=== PATIENT | male | born 1960 | race Caucasian/White ===

== ENCOUNTER 2018-10-15 09:30 | Emergency (ER) | payer OTHER ==
[~2018-10-15] VITALS: Ht 157.5 cm; Wt 78.9 kg
[2018-10-15 09:35] VITALS: Ht 157.5 cm; Wt 78.9 kg
[2018-10-15] MEDS ORDERED: LIDOCAINE 1% (MPF) 5 ML VIAL INJ ONE (10:00)
[2018-10-15] MEDS ORDERED: CEPH-443 PO (11:11)
[2018-10-15] MEDS ORDERED: NAPR-985 PO (11:11)
[2018-10-15] MEDS ORDERED: SULF1TAB31 PO (11:11)
[2018-10-15 11:31] VITALS: BP 133/71; PULSE 71; RESP 18
--- NOTE | 2018-10-15 13:31 | ERD ---
ER Documentation Chief Complaint Chief Complaint LEFT HIP ABCESS X 2 WEEKS HPI 58-year-old male presenting with an abscess to his left hip. Patient states is been there for about 2 weeks. He has not taking any medication or applying cream to the affected area. He states is gotten larger and is very painful. Denies fevers. No other medical problems. NKDA. Surgical history denies. Social history denies ROS All systems reviewed and are negative except as per history of present illness. Medications Home Meds Active Scripts Naproxen* (Naprosyn*) 500 Mg Tablet, 500 MG PO BID PRN for PAIN AND/OR INFLAMMATION, #30 TAB Prov:IVIS MAC PA-C 10/15/18 Cephalexin* (Keflex*) 500 Mg Capsule, 500 MG PO QID for 7 Days, CAP Prov:IVIS MAC PA-C 10/15/18 Sulfamethoxazole/Trimethoprim* (Bactrim Ds* Tablet) 1 Each Tablet, 1 TAB PO BID, #14 TAB Prov:IVIS MAC PA-C 10/15/18 Allergies Allergies: Coded Allergies: No Known Allergy (Unverified , 10/15/18) PMhx/Soc History of Surgery: Yes ("Abdominal ?") Anesthesia Reaction: No Hx Neurological Disorder: No Hx Respiratory Disorders: No Hx Cardiac Disorders: No Hx Psychiatric Problems: No Hx Miscellaneous Medical Probl: No Hx Alcohol Use: Yes Hx Substance Use: No Hx Tobacco Use: Yes Smoking Status: Current some day smoker FmHx Family History: No diabetes, No coronary disease, No other Physical Exam Vitals Vital Signs Date Temp Pulse Resp B/P (MAP) Pulse Ox O2 O2 Flow FiO2 Time Delivery Rate 10/15/18 98.1 71 18 133/71 99 Room Air 11:31 (91) 10/15/18 98.1 77 18 140/77 99 09:35 (98) Physical Exam GENERAL: The patient is well-appearing, well-nourished, in no acute distress CHEST: Clear to auscultation bilaterally. There are no rales, wheezes or rhonchi. HEART: Regular rate and rhythm. No murmurs, clicks, rubs or gallops. EXTREMITIES: Equal pulses bilaterally. There is no peripheral clubbing, cyanosis or edema. No focal swelling or erythema. Full range of motion. Grossly neurovascularly intact. NEUROLOGIC: Alert and oriented. Cranial nerves II through XII intact. Motor strength in all 4 extremities with 5 out of 5 strength. Sensation grossly intact. Normal speech and gait. SKIN: Indurated erythematous site noted to the left hip. Questionable fluctuance. No lymphatic streaking. Results 24 hrs Current Medications Medications Dose Sig/Yuli Start Time Status Last (Trade) Ordered Route PRN Stop Time Admin Dose Reason Admin Lidocaine 5 ml ONCE ONCE 10/15/18 DC (Xylocaine INJ 10:00 10/15/18 1% (Mpf)) 10:01 Procedures/MDM ER course: Site was cleaned and 3 cc of plain lidocaine injected into the affected site. Incision was made. No purulence was extracted only blood was removed from the area. site was reclean the pressure bandage was applied. MDM: 58-year-old male presenting with abscess to left hip. Purulence was removed from the abscess at today's visit so is he is recommended to return home apply warm compresses for 2 days. I recommended he return to the ER in 2 days for repeat procedure as purulence is will likely be present at that time. Patient is discharged with antibiotics. Patient is told symptoms change or worsen to return immediately to the ER. All questions answered at discharge Departure Diagnosis: Primary Impression: Abscess Condition: Stable Patient Instructions: Abscess, Incision And Drainage Referrals: [facility] YOU HAVE RECEIVED A MEDICAL SCREENING EXAM AND THE RESULTS INDICATE THAT YOU DO NOT HAVE A CONDITION THAT REQUIRES URGENT TREATMENT IN THE EMERGENCY DEPARTMENT. FURTHER EVALUATION AND TREATMENT OF YOUR CONDITION CAN WAIT UNTIL YOU ARE SEEN IN YOUR DOCTORS OFFICE WITHIN THE NEXT 1-2 DAYS. IT IS YOUR RESPONSIBILITY TO MAKE AN APPOINTMENT FOR FOLOW-UP CARE. IF YOU HAVE A PRIMARY DOCTOR --you should call your primary doctor and schedule an appointment IF YOU DO NOT HAVE A PRIMARY DOCTOR YOU CAN CALL OUR PHYSICIAN REFERRAL HOTLINE AT IF YOU CAN NOT AFFORD TO SEE A PHYSICIAN YOU CAN CHOSE FROM THE FOLLOWING [facility] [id number] [facility] [address] [facility] [facility] [address] [facility] [address] [facility] [address] [facility]. [facility] [address] Additional Instructions: FOLLOW UP WITH YOUR PRIMARY CARE PHYSICIAN TOMORROW.Return to this facility if you are not improving as expected. IVIS MAC PA-C Oct 15, 2018 13:31
== END 2018-10-15 11:34 | disposition home or self-care (01) ==
LOC: FTE 09:30
DX: L02.416 Cutaneous abscess of left lower limb (principal); F17.210 Nicotine dependence, cigarettes, uncomplicated
CPT/HCPCS: 10060; Z7502; Z7610